=== PATIENT | female | born 1995 | race Hispanic/Latino ===

== ENCOUNTER 2018-11-02 19:19 | Inpatient (IN) | payer MEDICAID | END 2018-11-05 13:25 | disposition home or self-care (01) | LOC: LDH 19:19 → WSH 11-03 15:40 → LDH 20:37 | PROC: 10E0XZZ Delivery of Products of Conception, External Approach (ICD-10-PCS; principal; ~2018-11-02) | DX: O80 Encounter for full-term uncomplicated delivery (principal); Z37.0 Single live birth; Z3A.37 37 weeks gestation of pregnancy ==